=== PATIENT | male | born 1980 | race Caucasian/White ===

== ENCOUNTER 2022-01-12 09:29 | Emergency (ER) | payer MEDICAID ==
[~2022-01-12] VITALS: Ht 165.1 cm; Wt 91.6 kg
[2022-01-12 09:32] VITALS: BP 123/76
--- NOTE | 2022-01-12 10:15 | NUR ---
DR LAZARO AT BEDSIDE EXAMINING PT
--- NOTE | 2022-01-12 10:15 | NUR ---
41 Y/O MALE BIB WITH C/O RECTAL BLEEDING, DIARRHEA AND PAIN SINCE YESTERDAY, STATES "IT BERRIOS." REPORTS SOME DIZZINESS THIS MORNING, DENIES TAKING MEDICATION FOR PAIN. PT STATES 8 PRESSURE, EPIGASTRIC PAIN. TENDER UPON PALPATION. MEDHX: DENIES ALLERGIES: DAVID
--- NOTE | 2022-01-12 10:23 | NUR ---
BLOOD WORK COLLECTED AND SENT TO LAB
[2022-01-12 10:45] LABS: BASOPHILS # (AUTO) 0.1 K/uL (0.00-0.22); BASOPHILS % (AUTO) 1.2 % (0.0-2.0); EOSINOPHILS # (AUTO) 0.2 K/uL (0-0.4); EOSINOPHILS % (AUTO) 2.7 % (0.0-4.0); HEMATOCRIT 42.5 % (36-52); HEMOGLOBIN 14.1 g/dL (12.0-18.0); LYMPHOCYTES # (AUTO) 2.2 K/uL (2.0-11.5); LYMPHOCYTES % (AUTO) 27.9 % (20.5-51.1); MEAN CORPUSCULAR HEMOGLOBIN 30 pg (27-31); MEAN CORPUSCULAR HGB CONC 33 g/dL (33-37); MEAN CORPUSCULAR VOLUME 90.1 fL (80-94); MONOCYTES # (AUTO) 0.5 K/uL (0.8-1.0); MONOCYTES % (AUTO) 6.1 % (1.7-9.3); NEUTROPHILS # (AUTO) 4.9 K/uL (1.8-7.7); NEUTROPHILS % (AUTO) 62.1 % (42.2-75.2); PLATELET COUNT (AUTO) 250 K/uL (140-450); RED BLOOD CELL COUNT(AUTO) 4.71 MIL/uL (4.20-6.10); RED CELL DISTRIBUTION WIDTH 15.3 % (11.6-13.7); WHITE BLOOD COUNT (AUTO) 7.9 K/uL (4.8-10.8)
[2022-01-12 11:10] LABS: ALBUMIN 3.2 g/dL (3.4-5.0); ANION GAP 12.9 (8-16); CARBON DIOXIDE 26.7 mmol/L (21-32); CREATININE 0.8 mg/dL (0.6-1.3); POTASSIUM 3.6 mmol/L (3.5-5.1); TOTAL BILIRUBIN 0.3 mg/dL (0.0-1.0)
[2022-01-12] MEDS ORDERED: HYDR25SU91 RC (11:28)
[2022-01-12 11:44] VITALS: BP 123/76
--- NOTE | 2022-01-12 11:44 | NUR ---
Patient discharged with v/s stable. Written and verbal after care instructions given and explained. Patient alert, oriented and verbalized understanding of instructions. Ambulatory with steady gait. All questions addressed prior to discharge. ID band removed. Patient advised to follow up with PMD. Rx of ANUSOL-HC given. Patient educated on indication of medication including possible reaction and side effects. Opportunity to ask questions provided and answered.
== END 2022-01-12 11:44 | disposition home or self-care (01) ==
LOC: MED 09:29
DX: K62.5 Hemorrhage of anus and rectum (principal); R19.7 Diarrhea, unspecified; R10.84 Generalized abdominal pain
CPT/HCPCS: 36415; 74018; 80053; 85025; 99284

== ENCOUNTER 2022-02-04 04:47 | Emergency (ER) | payer MEDICAID ==
[~2022-02-04] VITALS: Ht 165.1 cm; Wt 77.1 kg
[~2022-02-04 04:47] MED LIST: HYDR25SU91 RC
[2022-02-04 04:51] VITALS: BP 114/46
--- NOTE | 2022-02-04 04:52 | NUR ---
Patient ambulated to bed 12 with steady gait. Visitor at [facility].
--- NOTE | 2022-02-04 05:00 | NUR ---
SEE COMPLETE ASSESSMENT FOR FUTHER DETAILS.
[2022-02-04] MEDS ORDERED: ONDANSETRON 4 MG/2 ML VIAL IVP ONE (05:10)
[2022-02-04] MEDS ORDERED: NACL 0.9% 1,000 ML IV ONE (05:10)
[2022-02-04 05:51] LABS: BASOPHILS % (AUTO) 0.5 % (0.0-2.0); EOSINOPHILS # (AUTO) 0.2 K/uL (0-0.4); EOSINOPHILS % (AUTO) 2.1 % (0.0-4.0); HEMATOCRIT 42.5 % (36-52); HEMOGLOBIN 14.5 g/dL (12.0-18.0); LYMPHOCYTES # (AUTO) 1.8 K/uL (2.0-11.5); LYMPHOCYTES % (AUTO) 24.4 % (20.5-51.1); MEAN CORPUSCULAR HEMOGLOBIN 30 pg (27-31); MEAN CORPUSCULAR HGB CONC 34 g/dL (33-37); MEAN CORPUSCULAR VOLUME 88.5 fL (80-94); MONOCYTES # (AUTO) 0.9 K/uL (0.8-1.0); MONOCYTES % (AUTO) 11.7 % (1.7-9.3); NEUTROPHILS # (AUTO) 4.6 K/uL (1.8-7.7); NEUTROPHILS % (AUTO) 61.3 % (42.2-75.2); PLATELET COUNT (AUTO) 268 K/uL (140-450); RED BLOOD CELL COUNT(AUTO) 4.79 MIL/uL (4.20-6.10); RED CELL DISTRIBUTION WIDTH 14.6 % (11.6-13.7); WHITE BLOOD COUNT (AUTO) 7.5 K/uL (4.8-10.8)
[2022-02-04 06:12] LABS: ALBUMIN 3.3 g/dL (3.4-5.0); ANION GAP 8.6 (8-16); CARBON DIOXIDE 32.8 mmol/L (21-32); CREATININE 0.8 mg/dL (0.6-1.3); POTASSIUM 3.4 mmol/L (3.5-5.1); TOTAL BILIRUBIN 0.4 mg/dL (0.0-1.0)
--- NOTE | 2022-02-04 06:30 | NUR ---
Patietn able to ambulate to restroom with steady gait. Jim has had no further episode of N/V at this time.
--- NOTE | 2022-02-04 07:16 | NUR ---
Report given to Abdirahman AVILA, transfer of care.
[2022-02-04] MEDS ORDERED: ONDA-188 SL (07:32)
[2022-02-04] MEDS ORDERED: LOPE-289 PO (07:32)
--- NOTE | 2022-02-04 07:45 | NUR ---
Patient discharged with v/s stable. Written and verbal after care instructions given and explained. Patient alert, oriented and verbalized understanding of instructions. Ambulatory with steady gait. All questions addressed prior to discharge. ID band removed. Patient advised to follow up with PMD. Rx of ZOFRAN AND IMODIUM given. Patient educated on indication of medication including possible reaction and side effects. Opportunity to ask questions provided and answered.
--- NOTE | 2022-02-04 07:58 | NUR ---
patient ready to go home, [facility] contacted [facility] 35 min
[2022-02-04 08:45] VITALS: BP 112/60
== END 2022-02-04 07:45 | disposition home or self-care (01) ==
LOC: MED 04:47
DX: R11.2 Nausea with vomiting, unspecified (principal); R19.7 Diarrhea, unspecified; R10.9 Unspecified abdominal pain; Z20.822 Contact with and (suspected) exposure to COVID-19
CPT/HCPCS: 36415; 80053; 83690; 85025; 96361; 96374; 99283; C9803; J2405; J7030